=== PATIENT | female | born 1980 | race Caucasian/White ===

== ENCOUNTER 2017-02-28 12:40 | Emergency (ER) | payer MEDICAID ==
[2017-02-28 12:49] VITALS: O2SAT 98
[2017-02-28] MEDS ORDERED: NS 1,000 ML IV ONE (13:25)
--- NOTE | 2017-02-28 13:25 | EDPHY ---
H & P Stated Complaint: Feels weak "like I might pass out" Time Seen by Provider: 02/28/17 13:04 HPI/ROS: CHIEF COMPLAINT: Dizziness HISTORY OF PRESENT ILLNESS: The patient is a 37 y/o female, with a history of anxiety, arriving with her friends complaining of acute onset dizziness while speaking on the phone this afternoon. She has felt these symptoms one time previously and believes she had a seizure during that prior episode. She says, "last time this happened I had a seizure, but didn't see anybody about it." That event happened this past spring and she believes it was related to an emotional response after receiving bad news on the phone. During that episode she initially felt nauseated, vomited, very dizzy, then lost consciousness and fell out of her chair. She does not remember a short period of time, but was able to recognize her boyfriend immediately afterward regaining consciousness. She denies any similar emotional event preceding her symptoms today including headache, weakness, paresthesias, or vomiting. She notes she has been taking Flexeril recently for back pain, but no doses today. No recent trauma or illness. Does not have menstrual periods due to her IUD. No other pertinent medical history. REVIEW OF SYSTEMS: Constitutional: No fever, no chills Eyes: No visual changes ENT: No sore throat Respiratory: No cough, no shortness of breath Cardiac: No chest pain Gastrointestinal: No nausea, no vomiting, no abdominal pain Genitourinary: No hematuria, no dysuria Musculoskeletal: No leg pain or swelling Skin: No rash Neurological: No headache, no weakness Psychiatric: No depression - Personal History LMP (Females 10-55): IUD In Place Current Tetanus Diphtheria and Acellular Pertussis (TDAP): Yes Tetanus Vaccine Date: < 10 years - Medical/Surgical History PMH: PMH includes: 1. Anxiety 2. Prior possible syncope/seizure event spring 2016 Hx Asthma: No Hx Chronic Respiratory Disease: No Hx Diabetes: No Hx Cardiac Disease: No Hx Renal Disease: No Hx Cirrhosis: No Hx Alcoholism: No Hx HIV/AIDS: No Hx Splenectomy or Spleen Trauma: No Other PMH: medical anxiety, depression. surgery cholecystectomy - Social History Smoking Status: Current every day smoker Additional Social History: no PCP. Friends at bedside. Smoker. - Physical Exam Exam: General Appearance: Alert, pleasant Eyes: Pupils equal and round, no conjunctival pallor or injection ENT, Mouth: Mucous membranes moist Neck: Normal inspection Respiratory: Lungs are clear to auscultation Cardiovascular: Regular tachycardia Gastrointestinal: Abdomen is soft and non-tender Neurological: A&O, nonfocal, normal gait Skin: Warm and dry, no rash Extremities: Nontender, no pedal edema Psychiatric: anxious Constitutional: Initial Vital Signs Temperature (C) 37.4 C 02/28/17 12:45 Heart Rate 108 H 02/28/17 12:45 Respiratory Rate 18 02/28/17 12:45 Blood Pressure 132/109 H 02/28/17 12:45 O2 Sat (%) 98 02/28/17 12:45 O2 Delivery Mode Room Air Allergies/Adverse Reactions: tramadol Allergy (Mild, Verified 02/28/17 12:46) Rash Home Medications: Medication Instructions Recorded NK [No Known Home Meds] 02/28/17 Medical Decision Making ED Course/Re-evaluation: This is a 37 y/o female with a history of anxiety who presents with acute onset dizziness and low-grade fever. The prior similar episode this most consistent with a syncopal episode. Plan for IV, labs, and EKG. The 12 lead EKG was interpreted by myself. Sinus tachycardia rate 101. See hard copy and/or "tracemaster" electronic copy for interpretation. Reassessed patient and discussed work up. Her labs are unremarkable and her EKG shows sinus mechanism. She is feeling improved after IV fluids. Dizziness has resolved and is likely secondary to mild dehydration. She has a low grade fever for which she has received PO Tylenol. She tells me she has a history of frequent UTIs. Plan for urine dip to evaluate for this. Urine is normal. I discussed this with the patient and recommended follow up with a PCP this week for unimproved symptoms. Return precautions given. She is comfortable with this plan. Differential Diagnosis: Dizziness including but not limited to peripheral and central causes of vertigo , orthostatic causes including dehydration, and blood loss. - Data Points Laboratory Results: Laboratory Results 02/28/17 13:30 02/28/17 13:30 Medications Given: Discontinued Medications Acetaminophen (Tylenol) 650 mg PO EDNOW ONE Stop: 02/28/17 14:21 Last Admin: 02/28/17 14:43 Dose: 650 mg Sodium Chloride (Ns) 1,000 mls @ 0 mls/hr IV ONCE ONE; Wide Open PRN Reason: Protocol Stop: 02/28/17 13:26 Last Admin: 02/28/17 13:32 Dose: 1,000 mls Departure - Departure Disposition: Home, Routine, Self-Care Clinical Impression: Dizziness Condition: Good Instructions: Dizziness (ED) Additional Instructions: Increase fluid intake. Follow up with your primary care provider this week for unimproved symptoms. Return to the ED for worsening of condition. Referrals: [facility],. [Clinic] - As per Instructions Report Scribed for: Florence Boykin Report Scribed by: Beverly Bryant Date of Report: 02/28/17 Time of Report: 13:26 Physician Review and Approval Statement: 02/28/17 13:26 Portions of this note were transcribed by a medical assisting instructor. I personally performed a history, physical exam, medical decision making, and confirmed accuracy of information the transcribed note.
[2017-02-28 13:42] LABS: % IMMATURE GRANULYOCYTES 0.6 % (0.0-1.1); ABSOLUTE IMMATURE GRANULOCYTES 0.07 10^3/uL (0.00-0.10); ADD DIFF? NO; ADD MORPH? NO; ADD SCAN? NO; ATYPICAL LYMPHOCYTE FLAG 0 (0-99); FRAGMENT RBC FLAG 0 (0-99); HEMOGLOBIN 15.4 g/dL (12.6-16.3); LEFT SHIFT FLG 0 (0-99); LIPEMIA HEMOLYSIS FLAG 90 (0-99); MEAN CELL HEMOGLOBIN CONCENTR. 34.2 g/dL (32.4-36.7); MEAN CELL VOLUME 99.3 fL (81.5-99.8); MEAN PLATELET VOLUME 8.6 fL (8.7-11.7); PLATELET CLUMPS FLAG 0 (0-99); PLATELET COUNT 360 10^3/uL (150-400); RED BLOOD CELL COUNT 4.53 10^6/uL (4.18-5.33); RED CELL DISTRIBUTION WIDTH 13.7 % (11.5-15.2)
--- NOTE | 2017-02-28 13:43 | CPEKG ---
Heart Rate: 101 RR Interval: 594 P-R Interval: 172 QRSD Interval: 90 QT Interval: 368 QTC Interval: 477 P [place]: 62 QRS [place]: 11 T Wave [place]: 13 EKG Severity - BORDERLINE ECG - EKG Impression: SINUS TACHYCARDIA EKG Impression: BORDERLINE PROLONGED QT INTERVAL Electronically Signed By: Florence Boykin 28-Feb-2017 14:58:28
[2017-02-28 14:17] LABS: ANION GAP 13 mEq/L (8-16); CALCIUM 9.4 mg/dL (8.5-10.4); CARBON DIOXIDE 25 mEq/l (22-31); CHLORIDE 98 mEq/L (97-110); CREATININE 0.9 mg/dL (0.6-1.0); GLOMERULAR FILTRATION RATE > 60; GLUCOSE 88 mg/dL (70-100); POTASSIUM 4.4 mEq/L (3.5-5.2); SODIUM 136 mEq/L (134-144)
[2017-02-28] MEDS ORDERED: ACETAMINOPHEN 325 MG TAB PO ONE (14:20)
[2017-02-28 14:43] LABS: COLOR YELLOW; LEUKOCYTE ESTERASE,URINE NEGATIVE (NEGATIVE); NITRITE,URINE NEGATIVE (NEGATIVE)
[2017-02-28 14:49] VITALS: BP 131/92; PULSE 95; RESP 20; TEMP 98.2
== END 2017-02-28 14:55 | disposition home or self-care (01) ==
DX: R42 Dizziness and giddiness (principal); E86.9 Volume depletion, unspecified; F17.200 Nicotine dependence, unspecified, uncomplicated